=== PATIENT | male | born 1940 | race Caucasian/White ===

== ENCOUNTER 2016-04-17 07:20 | Inpatient (IN) | payer MEDICARE ==
[2016-04-09 16:19] VITALS: BMI 24.4
[~2016-04-17 07:20] MED LIST: ACETAMINOPHEN TAB 500 MG TAB PO ONE; DEXAMETHASONE SOD PHOSPHATE 10 MG/ML 1 ML VIAL IV ONE; HYDROmorphone 1 MG/ML 1 ML SYRINGE IVP PRN; LACTATED RINGERS 1,000 ML IV SCH; LIDOCAINE 1% 20 ML VIAL (10MG/ML) FOR IV START INTRADERMA PRN; MELOXICAM 7.5 MG TAB PO ONE; MIDAZOLAM 2 MG/2 ML VIAL IV PRN; ONDANSETRON 4 MG/2 ML VIAL IVP ONE; SCOPOLAMINE 1.5MG/72HR PATCH TRANSDERM ONE; TRANEXAMIC ACID 1,000 MG in SODIUM CHLORIDE 0.9% 100 ML IVPB ONE; ceFAZolin 2 GM in SODIUM CHLORIDE 0.9% 100 ML IVPB ONE
[2016-04-17 07:53] LABS: Appearance,Urine Clear (Clear); Bilirubin,Urine Negative (Negative); Glucose,Urine (UA) Negative (Negative); Ketones,Urine Negative (Negative); Leukocyte Esterase,Urine Negative (Negative); Nitrite,Urine Negative (Negative); Protein,Urine Negative (Negative); Specific Gravity,Urine 1.012 (1.001-1.035); UA Billing (MACRO vs. MICRO) CHEM; Urobilinogen,Urine <2.0 mg/dL (<2.0)
[2016-04-17] MEDS ORDERED: MIDAZOLAM 2 MG/2 ML VIAL IVP ONE ×2 (08:29→08:31)
[2016-04-17] MEDS ORDERED: fentaNYL (PF) 50 MCG/ML 2 ML AMP IV ONE ×2 (08:29→08:40)
[2016-04-17 08:48] LABS: Prothrombin Time 10.6 sec (9.0-12.0)
[2016-04-17] MEDS ORDERED: ROPIVACAINE 1,100 MG, SODIUM CHLORIDE 0.9% 330 ML MISCELLANE PRN ×2 (09:01)
--- NOTE | 2016-04-17 09:04 | P.ONQ ---
Anesthesiology Proc Note - PNB - Peripheral Nerve Block Performed Left Adductor Canal Infusion Procedure Start Time: 08:25 Procedure Stop Time: 08:50 Indication: Acute Post-Operative Pain, Analgesia, Requested by physician Sedation Type: Sedate with meaningful contact maintained Preparation: Sterile Dressing Position: Supine Catheter: Indwelling Needle Types: On-Q Needle Size: 100mm (4") Needle Gauge: 18 Technique: Ultrasound Injectate: 0.5% Ropivacaine (see comment for volume) Blood Aspirated: No Pain Paresthesia on Injection Noted: No Resistance on Injection: Normal Events: Uneventful and Well Tolerated
[2016-04-17] MEDS ORDERED: TRANEXAMIC ACID 1,000 MG/10 ML VIAL ONE (09:58)
[2016-04-17] MEDS ORDERED: fentaNYL (PF) 50 MCG/ML 2 ML AMP ONE (09:58)
[2016-04-17] MEDS ORDERED: MIDAZOLAM 2 MG/2 ML VIAL ONE (09:58)
[2016-04-17] MEDS ORDERED: SODIUM CHLORIDE 0.9% 100 ML BAG ONE (09:58)
[2016-04-17] MEDS ORDERED: PROPOFOL 10 MG/ML 20 ML VIAL IV ONE (09:58)
[2016-04-17] MEDS ORDERED: ceFAZolin 3,000 MG in SODIUM CHLORIDE 0.9% IRRIGATIO 3,000 ML IRRIGATION ONE (10:15)
[2016-04-17] MEDS ORDERED: LACTATED RINGERS 1,000 ML IV ONE ×2 (10:15→11:38)
[2016-04-17] MEDS: ROPIVACAINE 246.25 MG, EPINEPHrine 0.5 MG, KETOROLAC 30 MG, cloNIDine HCL/PF 80 MCG, WA... MISCELLANE ONE ×10 (10:42→12:10)
--- NOTE | 2016-04-17 11:40 | P.OP ---
Date of Procedure: 04/17/16 Preoperative Diagnosis: Severe osteoarthritis of the left knee Postoperative Diagnosis: Severe osteoarthritis of the left knee Procedure(s) Performed: Left total knee arthroplasty Implants: Hutchison and Nephew Oxinium femoral component size 7, left Hutchisno & Nephew Hallie II left nonporous tibial baseplate size 7 Hutchison & Nephew size 9 mm Legion XLPE high flexion articular insert, size 7-8 Hutchison & Nephew Hallie II resurfacing patellar component, 35 mm All components were cemented using Santiago bone cement.. The articulation is ceramic on polyethylene. Anesthesia: spinal Surgeon: Dmitri Berger It Systems Engineer #1: Germania Hayes Estimated Blood Loss (ml): 50 Pathology: other (Bone and cartilage) Condition: stable Disposition: PACU Indications for Procedure: After failure of conservative treatment we discussed the surgical and nonsurgical treatment options at length. Patient wishes to proceed with a total knee arthroplasty. Complications specific to this procedure were discussed at length, including but not limited to infection, bleeding, stiffness , and nerve injury. Patient is aware of all these complications and informed consent was obtained Operative Findings: The operative findings are consistent with severe osteoarthritis of the left knee Description of Procedure: Patient was seen in the preoperative area consent was reviewed and operative site was marked with a skin marker. Patient was then brought to the operating room and given preoperative antibiotics intravenously. A spinal anesthetic was administered by the anesthesia department. A tourniquet was placed on the upper thigh and the lower extremity was prepped and draped in usual sterile fashion. A gram of transexamic acid was given. A universal timeout was then performed which confirmed the patient's name, surgical site, ALLERGIES, and consent. The lower extremity was then exsanguinated and tourniquet was inflated to 250 mmHg. A standard and anterior midline approach to the knee was performed. The skin and subcutaneous tissue was dissected down to the patellar tendon. A medial parapatellar arthrotomy was then performed. The knee was then extended, the patellar was everted, and the knee was again flexed. Anterior horns of both menisci were excised, and a release was performed to the posterior medial aspect of the knee. On gross visual inspection, there was complete loss of articular cartilage in the medial and patellofemoral joint spaces. There was also significant cartilage damage in the lateral compartment. There were multiple periarticular osteophytes which were then removed with a Ronguer. The femoral canal was then opened with the appropriate drill, and the intramedullary femoral cutting guide was then placed and set for 4 of valgus. The distal femoral cutting block was then pinned in place, and the distal femur was then cut. The cutting block was then removed and the cut was checked for flatness. Next, the sizing guide was then placed and set for 3 external rotation based off of the epicondylar axis and Whitesides line. After the femur was sized, the appropriate 4-in-1 cutting block was then pinned in place. The anterior condyles were cut without notching. The posterior and chamfer cuts were performed while protecting the collateral ligaments. The cutting block was then removed, and the femoral canal was plugged with autologous bone. Attention was then directed to the tibia. The remaining ACL was removed with a Ronguer, and the tibia was then gently subluxed forward with a large bent knee retractor. Any remaining menisci was excised. The posterior lateral corner was cauterized in order to cauterize the lateral geniculate artery. The extra medullary tibial cutting guide was then placed, set for the appropriate rotation , slope, and depth of resection. The proximal tibia cutting guide was then pinned in place. Proximal tibia was then cut and sized. Next trials were then placed with the appropriate-sized insert. The knee was able to fully extend and flex to 130 and was stable throughout all range of motion. The knee was then extended, patella everted. Patella was then measured, and then using an osteotomy guide, the patella was cut at the appropriate level. The patella was then measured and drilled and the patella trial was then placed. The knee was then taken through range of motion with the patella trial and the patella tracked normally. The knee was then extended patella trial was then removed and the patella was everted. Knee was then flexed and lug holes were drilled through the femoral trial and the femoral trial was then removed. The tibial was then exposed, and the tibial broach guide was then pinned in place after it was set for the appropriate rotation to allow for the most coverage without overhang. The tibia was then broached. The cut surfaces of bone were then irrigated with pulsatile lavage. The posterior structures were injected with the ropivacaine solution. The knee was also irrigated with Irrisept solution. The components were then opened, the cement was mixed, and the components were then cemented in place. The cement was allowed to harden with the knee in full extension. While the cement was hardening, the remaining soft tissues were injected with the ropivacaine solution. After the cemented hardened. The tourniquet was released, and hemostasis was obtained. A second gram of transexamic acid was given. The knee was again irrigated. The knee was again taken through range of motion and found to be stable throughout all range of motion of 0-130, and the patella tracked normally. The fascia was then closed with #2 strata fix suture. The subcutaneous tissue was closed with 3-0 Vicryl and 3-0 strata fix. Dermabond tape was used for the skin, and the patient was placed in a sterile dressing. Patient was then transferred to recovery room in stable condition. The ex assistant/program director JACOB Mina was required due the complexity surgery and the need for a skilled surgical first assistant. She assisted in positioning, draping , retraction, and closure of the wound.
[2016-04-17] MEDS ORDERED: BISACODYL 10 MG SUPP RECTAL PRN (11:56)
[2016-04-17] MEDS ORDERED: ONDANSETRON 4 MG/2 ML VIAL IVP PRN (11:56)
[2016-04-17] MEDS ORDERED: NALOXONE 0.4 MG/ML 1 ML VIAL IV PRN (11:56)
[2016-04-17] MEDS ORDERED: HYDROcodone/APAP 5-325MG 1 EACH TAB PO PRN ×2 (11:56)
[2016-04-17] MEDS ORDERED: HYDROmorphone 1 MG/ML 1 ML SYRINGE IVP PRN ×3 (11:56)
[2016-04-17] MEDS ORDERED: MAGNESIUM HYDROXIDE 2,400 MG/10 ML CUP PO PRN (11:56)
[2016-04-17] MEDS ORDERED: hydrOXYzine PAMOATE 25 MG CAP PO PRN (11:56)
[2016-04-17] MEDS ORDERED: DIAZEPAM 5 MG TAB PO PRN ×2 (11:56)
--- NOTE | 2016-04-17 12:32 | XR ---
Limited left knee HISTORY: Postop left knee 2 views of the left knee, no comparisons Patient is status post left knee arthroplasty. Lucency present in the soft tissues compatible with po stop state. Alignment is maintained. IMPRESSION: Orthopedic Follow-up.
[2016-04-17] MEDS: SODIUM CHLORIDE 0.9% 1,000 ML IV SCH ×2 (15:32→23:45)
[2016-04-17] MEDS: ceFAZolin 2 GM in SODIUM CHLORIDE 0.9% 100 ML IVPB SCH ×2 (15:45→23:34)
[2016-04-17] MEDS ORDERED: traMADol 50 MG TAB PO SCH (18:00)
[2016-04-17] MEDS ORDERED: traMADol 50 MG TAB PO PRN (18:12)
--- NOTE | 2016-04-17 20:06 | CONS ---
DATE OF CONSULTATION: REASON FOR CONSULTATION: Medical management requested by Dr. Berger. CONSULTATION: This is a pleasant 76 -year-old patient of Dr. Oliver. Patient's chronic stable medical conditions include hypertension, he has undergone a left total knee arthroplasty. Post procedure sitting up in bed, comfortable. No chest pain or shortness of breath, nausea or vomiting. Pain is well controlled. REVIEW OF SYSTEMS: CONSTITUTIONAL: None. HEENT: None. RESPIRATORY: None. CARDIOVASCULAR: None. GASTROINTESTINAL: None. MUSCULOSKELETAL: Pain in the joints. Dermatological: None. HEMATOLOGICAL: None. LYMPHATIC: None. PSYCHIATRY: None. NEUROLOGICAL: None. Past medical history: osteoarthritis, hypertension. PAST SURGICAL HISTORY: Back surgery, joint replacement, SOCIAL HISTORY: Lives by himself. Smokes a pack a day for 50 years; stopped in 1998. 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 Family history of cancer, melanoma. HOME MEDICATIONS: 1. Norvasc 5 mg a day. 2. Fish oil 1 capsule p.o. daily. 3. Losartan hydrochlorothiazide 100/25 1 tablets p.o. daily. 4. Aspirin 81 mg daily. 5. Vitamin C 500 mg daily. ALLERGIES: MANDO INHIBITORS CAUSING COUGH. On examination, temperature 96, pulse 54, respiration 16, blood pressure 132/56, pulse ox 94% on room air. GENERAL APPEARANCE: Average built, sitting up, comfortable. EYES: Pupils equal. Conjunctivae normal. HEENT: External appearance of nose and ears normal. Oral cavity normal. NECK: JVD not raised. Mass not palpable. RESPIRATORY: Effort normal. LUNGS: Clear. CARDIOVASCULAR: First and second sounds normal. No edema. ABDOMEN: Soft, nontender. Liver and spleen not palpable. LYMPHATIC: No lymph nodes palpable in the neck and axilla. PSYCHIATRY: Alert and oriented x3. Mood and affect normal. EXTREMITIES: Left knee in a dressing. INVESTIGATIONS: INR 1. ASSESSMENT: 1. Left total knee arthroplasty ( ) osteoarthritis. 2. Essential hypertension. PLAN: Patient is getting aspirin 325 twice a day for DVT prophylaxis. Pain control is in place. Resume patient's home blood pressure medications. Care was discussed with the patient. Thank you, Dr. Berger.
[2016-04-17] MEDS: SENNOSIDES-DOCUSATE SODIUM 1 EACH TAB PO SCH (21:41)
[2016-04-17] MEDS: ASPIRIN 325 MG TAB PO SCH (21:41)
[2016-04-18 01:04] VITALS: RESP 16
[2016-04-18 07:48] LABS: Basophils % (A) 0 %; CH 31.3; CHCM 35.8; Eosinophils % (A) 0 %; HCT 35.8 % (39.0-53.0); HDW 3.03; HGB 12.6 gm/dL (13.0-17.5); Luc # (Auto) 0.09; Luc % (Auto) 1; Lymphocytes # (A) 1.2 k/uL (1.0-4.8); Lymphocytes % (A) 9 %; MCHC 35.2 g/dL (31.0-37.0); Monocytes # (A) 0.7 k/uL (0-1.0); Monocytes % (A) 5 %; Neutrophils # (A) 12.4 k/uL (1.3-7.7); Neutrophils % (A) 86 %; RBC 4.07 m/uL (4.30-5.90); RDW 13.5 % (11.5-15.5); WBC 14.5 k/uL (3.8-10.6); WBC (Perox) 14.66
[2016-04-18] MEDS: LOSARTAN-HCTZ 50-12.5 MG 1 EACH TAB PO SCH (08:26)
[2016-04-18] MEDS: ASPIRIN 325 MG TAB PO SCH ×2 (08:26→20:50)
[2016-04-18] MEDS: traMADol 50 MG TAB PO PRN ×3 (08:27→17:03)
[2016-04-18] MEDS: MELOXICAM 7.5 MG TAB PO SCH (08:27)
--- NOTE | 2016-04-18 09:10 | P.PN ---
Progress Note - Text . Postoperative day # 2 status post left total knee arthroplasty, under spinal anesthesia, and adductor canal catheter placed for postoperative analgesia, currently at ropivacaine 0.2% 8 mL per hour and continuous infusion , catheter site local. There is no erythema, and there is no tenderness, visual analogue scale is 0/10, . Assessment and plan= Acute postoperative pain, adductor canal catheter for pain control, pain is well controlled we'll continue the same management.
--- NOTE | 2016-04-18 09:45 | P.PN ---
Subjective Principal diagnosis: Status post left total knee arthroplasty This is a pleasant 76-year-old gentleman who is status post left total knee arthroplasty. Today's postoperative day #1. Patient is seen and evaluated at bedside. He is doing quite well and has been up ambulating with physical therapy. He complains of minimal pain. He denies shortness of breath or lightheadedness. Objective - Vital Signs Vital signs: Vital Signs Temp 98 F 04/18/16 07:40 Pulse 59 L 04/18/16 07:40 Resp 16 04/18/16 07:40 BP 135/62 04/18/16 07:40 Pulse Ox 95 04/18/16 07:40 Intake & Output 04/17/16 04/18/16 04/18/16 18:59 06:59 18:59 Intake Total 2601 Output Total 50 2675 Balance 2551 -2675 Intake: IV 2201 Oral 400 Output: Urine 2675 Straight 1100 Estimated Blood Loss 50 Other: Voiding Method Urinal - Exam The patient does not appear in acute distress. Alert and orientated 3. Dressing is clean dry and intact. Incision appears fine with no erythema or active drainage. He is able to perform straight leg raise. Calf is soft and nontender. Good foot and ankle motion without difficulty. Sensation and circulatory status is intact. - Labs CBC & Chem 7: 04/18/16 06:57 Labs: Abnormal Lab Results - Last 24 Hours (Table) 04/18/16 Range/Units 06:57 WBC 14.5 H (3.8-10.6) k/uL RBC 4.07 L (4.30-5.90) m/uL Hgb 12.6 L (13.0-17.5) gm/dL Hct 35.8 L (39.0-53.0) % Neutrophils # 12.4 H (1.3-7.7) k/uL Assessment and Plan (1) Primary localized osteoarthritis of left knee Status: Acute (2) Status post knee replacement Status: Acute Plan: Continue with routine postoperative care. Anticoagulation with aspirin. Pain control and physical therapy. Anticipate discharge to home with home care tomorrow.
[2016-04-18] MEDS: amLODIPine 5 MG TAB PO SCH (10:03)
[2016-04-18] MEDS ORDERED: ACETAMINOPHEN TAB 500 MG TAB PO PRN (11:15)
--- NOTE | 2016-04-18 20:26 | PN ---
DATE OF SERVICE: 04/18/2016 PRESENTING COMPLAINT: Knee surgery. INTERVAL HISTORY: The patient is status post left knee surgery, doing well, sitting up, comfortable. I saw the patient earlier today. No chest or palpitations, shortness of breath. No nausea, vomiting, comfortable. Review of systems done for constitutional, cardiovascular, GI, pulmonary; relevant findings as above. Current medications are reviewed. On examination, temperature 98, pulse 59, respiratory rate 16, blood pressure 135/62, pulse ox 95% on room air. GENERAL APPEARANCE: Sitting up, comfortable. EYES: Pupils equal, conjunctivae normal. NECK: JVD not raised. Mass not palpable. RESPIRATORY: Effort normal. Lungs are clear. CARDIOVASCULAR: First and second sounds normal. No edema. ABDOMEN: Soft, nontender. Liver and spleen not palpable. PSYCHIATRY: Alert and oriented times three. Mood and affect normal. INVESTIGATIONS: White count 14.5, hemoglobin 12.6. ASSESSMENT: 1. Left knee arthroplasty from osteoarthritis. 2. Essential hypertension. 3. Leukocytosis likely reactive from surgery. Clinically no evidence of infection. ( ) doing well.
[2016-04-18] MEDS: SENNOSIDES-DOCUSATE SODIUM 1 EACH TAB PO SCH (20:50)
[2016-04-19] MEDS: traMADol 50 MG TAB PO PRN ×2 (05:02→11:45)
[2016-04-19] MEDS: ASPIRIN 325 MG TAB PO SCH (07:57)
[2016-04-19] MEDS: amLODIPine 5 MG TAB PO SCH (07:57)
[2016-04-19] MEDS: LOSARTAN-HCTZ 50-12.5 MG 1 EACH TAB PO SCH (07:57)
[2016-04-19] MEDS: MELOXICAM 7.5 MG TAB PO SCH (07:58)
[2016-04-19 08:32] VITALS: BP 142/72; PULSE 77; TEMP 98
--- NOTE | 2016-04-19 09:09 | P.DS ---
Providers Date of admission: 04/17/16 07:23 Expected date of discharge: 04/19/16 Attending physician: Dmitri Berger Consults: 04/17/16 11:56 Consult Physician Routine Consulting Provider: Robert Hernandez Consult Reason/Comments: medical management Do you want consulting provider notified?: Yes Primary care physician: Isreal Oliver - Discharge Diagnosis(es) (1) Primary localized osteoarthritis of left knee Current Visit: Yes Status: Acute (2) Status post knee replacement Current Visit: Yes Status: Acute Hospital Course: This is a pleasant 76-year-old gentleman last seen in our office with complaints of left knee pain. The patient has known history of degenerative arthritis of the left knee. After discussion consideration the patient elected to proceed with left total knee arthroplasty. The patient was seen preoperatively medically cleared for surgery by his parent care physician The patient was admitted to [facility] on 04/17/2016 and underwent left total knee arthroplasty with Dr. Dmitri Berger. The patient is seen and evaluated at bedside today. He has been doing well physical therapy and his pain is reasonably controlled. He denies any shortness of breath or chest pain. No lightheadedness. No abdominal pain. He was noted to have some soft tissue swelling about the left knee this morning. Knee was examined by Tg Dent PAC. Incision looks fine with no erythema or active drainage. Dermabond glue was intact. Compressive Philip bandage was placed. Calf is soft and nontender. He has good foot and ankle motion without difficulty. Sensation and circulatory status is intact. Patient is orthopedically stable for discharge to home today with home care. Pertinent Studies: Laboratory Tests 04/18/16 06:57 WBC 14.5 H RBC 4.07 L Hgb 12.6 L Hct 35.8 L MCV 88.0 MCH 31.0 MCHC 35.2 RDW 13.5 Plt Count 239 Neutrophils % 86 Lymphocytes % 9 Monocytes % 5 Eosinophils % 0 Basophils % 0 Neutrophils # 12.4 H Patient Condition at Discharge: Good Plan - Discharge Summary New Discharge Prescriptions: Aspirin 325 mg PO BID #60 tab Hydrocodone/Acetaminophen [[place] 5-325] 1 - 2 each PO Q6HR PRN #90 tab PRN Reason: Pain Sennosides-Docusate Sodium [Senokot-S] 2 tab PO DAILY #60 tablet Discharge Medication List Aspirin 81 mg PO DAILY 04/09/16 [History] Sinai-3 Fatty Acids/Fish Oil [Fish Oil 1,000 mg Softgel] 1 cap PO DAILY [History] Ascorbic Acid [Vitamin C] 500 mg PO DAILY 04/16/16 [History] Losartan/Hydrochlorothiazide [Losartan-Hctz 100-25 mg Tab] 1 tab PO DAILY [History] amLODIPine [Norvasc] 5 mg PO DAILY 04/16/16 [History] Aspirin 325 mg PO BID #60 tab 04/19/16 [Rx] Hydrocodone/Acetaminophen [[place] 5-325] 1 - 2 each PO Q6HR PRN #90 tab 04/19/16 [Rx] Sennosides-Docusate Sodium [Senokot-S] 2 tab PO DAILY #60 tablet 04/19/16 [Rx] Follow up Appointment(s)/Referral(s): [facility], [NON-STAFF] - Dmitri Berger DO [Doctor of Osteopathic Medicine] - 2 Weeks Ambulatory/Diagnostic Orders: Continuous Passive Motion (CPM) Machine [DME.AMB1] Location: Determined By Patient Activity/Diet/Wound Care/Special Instructions: Walker - has at home CPM - [facility] - [phone] - call when you get home for delivery of CPM Weightbearing as tolerated with a walker CPM daily -hold CPM today and tomorrow Continue with compressive Philip bandage for swelling about the knee Apply ice to left knee Daily dressing changes, keep incision clean and dry Call [facility] with questions or concerns [phone] Discharge Disposition: HOME WITH HOME HEALTH SERVICES
--- NOTE | 2016-04-19 10:07 | P.PN ---
Progress Note - Text Postoperative day # 2 status post total knee arthroplasty, on adductor canal perineural catheter placed for postoperative analgesia. Ropivacaine 0.2% 8 mL per hour through ON-Q pump continuous infusion. Pain is well controlled. On visual analog scale 2/10 Patient is taking PRN oral pain medications. Catheter site: Looks Ok. There is no erythema or tenderness. Continue with the current pain management plan. Patient is going home today.
--- NOTE | 2016-04-20 07:28 | PN ---
DATE OF SERVICE: 04/19/2016 PRESENTING COMPLAINT: Knee surgery. INTERVAL HISTORY: Seen by me this morning, doing well, comfortable, tolerating his diet. No nausea or vomiting. Did work with physical therapy. Review of systems done for constitutional, cardiovascular, GI, pulmonary; relevant findings as above. Current medications are reviewed. On examination, temperature 98, pulse 77, respiration 16, blood pressure 142/72, pulse ox 97% on room air. GENERAL APPEARANCE: Sitting up, comfortable. EYES: Pupils equal. Conjunctivae normal. NECK: JVD not raised. Mass not palpable. RESPIRATORY: Effort normal. Lungs are clear. CARDIOVASCULAR: First and second sounds normal. No edema. ABDOMEN: Soft, nontender. Liver and spleen not palpable. PSYCHIATRY: Alert and oriented x3. Mood and affect normal. INVESTIGATIONS: No blood work from today. ASSESSMENT: 1. Left total knee arthroplasty. 2. Essential hypertension. 3. Leukocytosis, reactive from surgery. No evidence of infection. PLAN: Patient is doing well. Continue current medication and treatment plan. Will follow.
== END 2016-04-19 15:08 | disposition home health service (06) | DRG 470 ==
LOC: 2ORMAIN 07:23 → 3SUR 11:52
PROVIDERS: ADMIT Orthopaedic Surgery; ATTEND Orthopaedic Surgery
PROC: 0SRD0J9 Replacement of Left Knee Joint with Synthetic Substitute, Cemented, Open Approach (ICD-10-PCS; principal; 2016-04-17 09:45)
DX: M17.12 Unilateral primary osteoarthritis, left knee (principal); I10 Essential (primary) hypertension; Z79.899 Other long term (current) drug therapy; Z87.891 Personal history of nicotine dependence; D72.829 Elevated white blood cell count, unspecified; Z79.82 Long term (current) use of aspirin
CPT/HCPCS: 81003; 85025; 85610; 88300; 94760